=== PATIENT | female | born 1985 | race Caucasian/White ===

== ENCOUNTER 2017-07-06 14:08 | Emergency (ER) | payer BC ==
[~2017-07-06] VITALS: Ht 167.6 cm; Wt 74.3 kg
[~2017-07-06 14:08] MED LIST: ALBUTEROL0.09 MG/A1 IH; BCP TD; NO HOME MEDICATIONS; PHENERGAN 25 TA25 MG PO; PHENERGAN W/CO120 ML PO
[2017-07-06 14:19] VITALS: TEMP 99.1
[2017-07-06] MEDS ORDERED: RECLIPSEN 0.151 TAB PO (14:22)
[2017-07-06 15:57] LABS: BASO # 0.1 (0.0-0.2); BASO % 0.6 % (0.0-2.0); EOS # 0.1 (0.0-0.7); GRAN # 5.2 (1.4-6.5); GRAN % 54.6 % (42.2-75.2); HEMATOCRIT 39.8 % (37.0-47.0); HEMOGLOBIN 13.4 g/dl (12.5-16.0); LYMPH # 3.7 (1.2-3.4); LYMPH % 38.3 % (20.0-51.0); MEAN CELL VOLUME 85 fl (80.0-100.0); MEAN CORPUSCULAR HEMOGLOBIN 29 pg (27.0-31.0); MEAN CORPUSCULAR HGB CONC 34 g/dl (33.0-37.0); MEAN PLATELET VOLUME 10.3 fl (7.4-10.4); MONO # 0.5 (0.1-0.6); MONO % 5.2 % (1.7-9.3); PLATELET COUNT 426 K/mm3 (130-400); RED BLOOD COUNT 4.66 M/mm3 (4.10-5.30); REDCELL DISTRIBUTION WIDTH-CV 12.4 % (11.5-14.5)
[2017-07-06 16:17] LABS: BILIRUBIN,TOTAL 0.2 mg/dL (0.0-1.0); CALCIUM 9.2 mg/dL (8.4-10.2); CREATININE, serum 0.61 mg/dL (0.52-1.25); TOTAL PROTEIN 7.8 gm/dL (6.4-8.2)
[2017-07-06 17:09] LABS: COLLECTION METHOD CLEAN CATCH
[2017-07-06 17:14] LABS: PH 5 (5-8); SQUAMOUS EPITHELIAL 0-2 /hpf; URINE APPEARANCE Clear; URINE BACTERIA Rare /hpf; URINE BILIRUBIN Negative (NEGATIVE); URINE BLOOD 1+ (NEGATIVE); URINE COLOR Straw; URINE GLUCOSE Negative (NEGATIVE); URINE KETONE Negative (NEGATIVE); URINE LEUKOCYTE ESTERASE Negative (NEGATIVE); URINE NITRATE Negative (NEGATIVE); URINE PROTEIN(semi-quant) Negative (NEGATIVE); URINE RBC None Seen /hpf; URINE UROBILINOGEN Negative (NEGATIVE)
[2017-07-06] MEDS ORDERED: ZOFRAN ODT4 MG PO (18:10)
[2017-07-06] MEDS ORDERED: ULTRAM 50MG TAB50 MG PO (18:10)
[2017-07-06 18:47] VITALS: BP 124/81; PULSE 82
== END 2017-07-06 18:48 | disposition home or self-care (01) ==
LOC: COL.ER 14:08
PROVIDERS: Emergency Medicine
DX: R10.31 Right lower quadrant pain (principal); G43.909 Migraine, unspecified, not intractable, without status migrainosus
CPT/HCPCS: J1885; J2270; J2405; J7030; Q9967

== ENCOUNTER 2021-09-12 12:53 | Emergency (ER) | payer BC ==
[~2021-09-12] VITALS: Ht 167.6 cm; Wt 76.4 kg
[~2021-09-12 12:53] MED LIST changes: +RECLIPSEN 0.151 TAB PO; +ULTRAM 50MG TAB50 MG PO; +ZOFRAN ODT4 MG PO
[2021-09-12 13:38] VITALS: TEMP 97.6
[2021-09-12 14:26] LABS: COLLECTION METHOD CLEAN CATCH
[2021-09-12 14:35] LABS: BASO % 0.5 % (0.0-2.0); EOS # 0.1 K/mm3 (0.0-0.7); EOS % 1.9 % (0.0-4.0); GRAN # 4.2 K/mm3 (1.4-6.5); GRAN % 55.3 % (42.2-75.2); HEMATOCRIT 41.4 % (37.0-47.0); HEMOGLOBIN 14.2 g/dl (12.5-16.0); LYMPH # 2.7 K/mm3 (1.2-3.4); LYMPH % 35.1 % (20.0-51.0); MEAN CELL VOLUME 86 fl (80.0-100.0); MEAN CORPUSCULAR HEMOGLOBIN 30 pg (27-31); MEAN CORPUSCULAR HGB CONC 34 g/dl (33.0-37.0); MEAN PLATELET VOLUME 10.6 fl (7.4-10.4); MONO # 0.5 K/mm3 (0.1-0.6); MONO % 6.9 % (1.7-9.3); PLATELET COUNT 414 K/mm3 (130-400); RED BLOOD COUNT 4.81 M/mm3 (4.10-5.30); REDCELL DISTRIBUTION WIDTH-CV 12.1 % (11.5-14.5)
[2021-09-12 14:36] LABS: PH 6 (5-8); SQUAMOUS EPITHELIAL 0-2 /hpf (0-10); URINE APPEARANCE Clear (CLEAR/HAZY); URINE BACTERIA None Seen /hpf (NONE SEEN); URINE BILIRUBIN Negative (NEGATIVE); URINE BLOOD Negative (NEGATIVE); URINE COLOR Straw (YELLOW); URINE GLUCOSE Negative (NEGATIVE); URINE KETONE Trace (NEGATIVE); URINE LEUKOCYTE ESTERASE Negative (NEGATIVE); URINE NITRATE Negative (NEGATIVE); URINE PROTEIN(semi-quant) Negative (NEGATIVE); URINE RBC 0-2 /hpf (0-2); URINE UROBILINOGEN Negative (NEGATIVE)
[2021-09-12 14:50] LABS: ALBUMIN 4.2 gm/dL (3.5-5.0); BILIRUBIN,TOTAL 0.3 mg/dL (0.2-1.2); CALCIUM 9.5 mg/dL (8.4-10.2); CREATININE, serum 0.71 mg/dL (0.57-1.11); POTASSIUM 3.6 mmol/L (3.5-4.5); TOTAL PROTEIN 8.1 gm/dL (6.2-8.1)
[2021-09-12 17:47] VITALS: BP 116/83; PULSE 82
== END 2021-09-12 17:47 | disposition home or self-care (01) ==
LOC: COL.ER 12:53
PROVIDERS: Family Medicine; Physician Assistant
DX: R10.31 Right lower quadrant pain (principal); G89.29 Other chronic pain; Z87.891 Personal history of nicotine dependence; Z32.02 Encounter for pregnancy test, result negative
CPT/HCPCS: J1790; J1885; J2405; Q9967